=== PATIENT | female | born 1990 | race African-American/Black ===

== ENCOUNTER 2016-02-25 14:38 | Emergency (ER) | payer MEDICAID ==
[2016-02-25] MEDS ORDERED: ASPIRIN 81 MG TABLET, CHEWABLE PO ONE (15:16)
--- NOTE | 2016-02-25 15:16 | ER Document Report ---
ED Medical Screen (RME) - General Chief Complaint: Cough Stated Complaint: Cough Time seen by provider: 15:13 Mode of Arrival: Ambulatory Information source: Patient Notes: 25 yo female presents to ed for cough and chest pain since . She was seen at that time for same. TRAVEL OUTSIDE OF THE [place] IN LAST 30 DAYS: No - HPI Onset: Other - 2 months Onset/Duration: Persistent Quality of pain: Pressure, Sharp Severity: Moderate Associated Symptoms: Chest pain - left arm and shoulder and neck also get radiating pain, Cough (nonproductive) Exacerbated by: Denies Relieved by: Denies Similar symptoms previously: Yes Recently seen / treated by doctor: No - Related Data Smoking: Non-smoker Frequency of alcohol use: None Drug Abuse: None Allergies/Adverse Reactions: No Known Allergies Allergy (Verified 02/25/16 15:12) Past Medical History - Past Medical History Cardiac Medical History: Reports: Hx Heart Murmur Past Surgical History: Reports: Hx Gynecologic Surgery - placenta - Immunizations Immunizations up to date: Yes Hx Diphtheria, Pertussis, Tetanus Vaccination: Yes
--- NOTE | 2016-02-25 16:05 | ER Document Report ---
ED General - General Chief Complaint: Cough Stated Complaint: Cough Time seen by provider: 15:35 Mode of Arrival: Ambulatory Information source: Patient Notes: 25-year-old female who complains about 2 month history of cough occasional productive white sputum and sharp anterior chest pain with coughing or deep breathing that has gotten worse over the past 2 days. She denies fever, chills , nausea, vomiting, diarrhea, abdominal pain, back pain, or swelling to extremities. She denies any history of travel or immobilization. As a family history of blood clots or heart problems. He does report occasional anterior facial pain and nasal congestion over the past week but that is not bothering her now. Patient was seen here November diagnosed with acute bronchitis and discharged with an inhaler and steroids but she says she is not ever taken antibiotics for this. Physical Exam: General: Alert, appears well. HEENT: Normocephalic. Atraumatic. PERRLA. Extraocular movements intact. Oropharynx clear. No frontal or maxillary sinus tenderness to palpation. Tympanic members canals clear. Neck: Supple. Non-tender. JVD Respiratory: No respiratory distress. Few rhonchi bilaterally breath sounds equal good aeration excess musty smelling to palpation anteriorly which reproduces patient's pain Cardiovascular: Regular rate and rhythm. Abdominal: Normal Inspection. Soft, non-tender. No distension. Normal Bowel Sounds. Back: Non-tender. No deformity or step off. Extremities: Moves all four extremities. 2+ pulses all 4 extremities no lower extremity edema. No Homans sign bilaterally. 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 Normal Mood. Skin: Warm. Dry. Normal color. TRAVEL OUTSIDE OF THE [place] IN LAST 30 DAYS: No - Related Data Allergies/Adverse Reactions: No Known Allergies Allergy (Verified 02/25/16 15:12) Past Medical History - General Information source: Patient - Social History Smoking Status: Never Smoker Chew tobacco use (# tins/day): No Frequency of alcohol use: None Drug Abuse: None Family History: Reviewed & Not Pertinent. denies: CAD Patient has suicidal ideation: No Patient has homicidal ideation: No - Past Medical History Cardiac Medical History: Reports: Hx Heart Murmur Past Surgical History: Reports: Hx Gynecologic Surgery - placenta - Immunizations Immunizations up to date: Yes Hx Diphtheria, Pertussis, Tetanus Vaccination: Yes Review of Systems - Review of Systems Constitutional: denies: Malaise, Weakness EENT: denies: Ear pain, Throat pain Cardiovascular: See HPI Respiratory: See HPI Gastrointestinal: denies: Nausea, Vomiting Genitourinary: denies: Burning, Dysuria Female Genitourinary: Last menstrual period - Just finished normal for her Musculoskeletal: denies: Back pain Hematologic/Lymphatic: denies: Swollen glands Neurological/Psychological: denies: Weakness, Numbness Physical Exam - Vital signs Vitals: Temp Pulse Resp BP Pulse Ox 98.1 F 62 18 127/74 H 100 02/25/16 15:12 02/25/16 15:12 02/25/16 15:12 02/25/16 15:12 02/25/16 15:12 Course - Re-evaluation Re-evalutation: 02/25/16 16:03 Patient has symptoms consistent with bronchitis but is they've not resolved over 2 months of Levaquin worthwhile this point to try a round of antibiotics C she consented to medical improvement. Her chest pain or believe is pleuritic in nature. She has no particular risk factors for coronary artery disease or pulmonary embolism - Vital Signs Vital signs: Temp Pulse Resp BP Pulse Ox 98.1 F 62 18 127/74 H 100 02/25/16 15:12 02/25/16 15:12 02/25/16 15:12 02/25/16 15:12 02/25/16 15:12 - Diagnostic Test Radiology reviewed: Reports reviewed - EKG Interpretation by Me Additional EKG results interpreted by me: 02/25/16 16:03 EKG reviewed by myself shows sinus rhythm at 67 no acute changes Discharge - Discharge Clinical Impression: Bronchitis Condition: Stable Disposition: HOME, SELF-CARE Additional Instructions: Bronchitis You have acute bronchitis. This disease is an infection or inflammation of the air passageways in your lungs. Symptoms usually include cough, low grade fever, shortness of breath, and wheezing. The cough usually persists for a couple of weeks. Most cases of bronchitis get better without antibiotics. We prescribe antibiotics when we believe bacteria are damaging your airways, or if there's high risk the bronchitis will worsen into pneumonia. Increase your fluid intake. A cool mist humidifier may make your lungs more comfortable. An expectorant (cough medicine that loosens phlegm) can help. If you smoke, STOP!!! Recovery from bronchitis can be somewhat slow, but you should see improvement within a day or two. Repeated episodes of bronchitis may result in lung damage -- for example, chronic bronchitis, recurrent pneumonias, or emphysema. Call the doctor if you develop increasing fever, shortness of breath, chest pain, bloody sputum, or otherwise worsen. If you have not improved at all after several days, contact the physician. Prescriptions: Azithromycin [Zithromax 250 mg Tablet] 250 mg PO ASDIR PRN #6 tablet PRN Reason: Referrals: QUANG RODRIGUEZ MD [ACTIVE STAFF] - Follow up as needed
[2016-02-25 17:03] VITALS: BP 117/65
--- NOTE | 2016-02-25 17:42 | EKG REPORT ---
SEVERITY:- OTHERWISE NORMAL ECG - SINUS ARRHYTHMIA, RATE [id number] : Confirmed by: Gavino Clarke 25-Feb-2016 17:40:54
== END 2016-02-25 16:33 | disposition home or self-care (01) ==
LOC: ER 14:38
DX: J40 Bronchitis, not specified as acute or chronic (principal); R05 Cough; R07.9 Chest pain, unspecified
CPT/HCPCS: 71020; 93005; 93010; 99283

== ENCOUNTER 2016-02-27 19:52 | Emergency (ER) | payer MEDICAID ==
--- NOTE | 2016-02-27 20:38 | ER Document Report ---
ED Medical Screen (RME) - General Stated Complaint: CHEST TIGHTNESS Time seen by provider: 20:32 Mode of Arrival: Ambulatory Information source: Patient Notes: 25 yo female c/o retrosternal midlinechest pain for 2 weeks, seen sunday, tx for bronchitis, checked her symptoms out on google and wants bloodwork to rule out heart attack. The doctor seen her sunday canceled all the albwork and she wants it checked to day. TRAVEL OUTSIDE OF THE [place] IN LAST 30 DAYS: No - Related Data Allergies/Adverse Reactions: No Known Allergies Allergy (Verified 02/25/16 15:12) Past Medical History - Past Medical History Cardiac Medical History: Reports: Hx Heart Murmur Past Surgical History: Reports: Hx Gynecologic Surgery - placenta - Immunizations Immunizations up to date: Yes Hx Diphtheria, Pertussis, Tetanus Vaccination: Yes
[2016-02-27 21:27] LABS: ABSOLUTE EOSINOPHILS # (AUTO) 0.1 10^3/uL (0.0-0.6); ABSOLUTE LYMPHOCYTES (AUTO) 1.9 10^3/uL (0.5-4.7); ABSOLUTE MONOCYTES (AUTO) 0.6 10^3/uL (0.1-1.4); ABSOLUTE NEUT (AUTO) 3.1 10^3/uL (1.7-8.2); BASOPHILS % (AUTO) 0.8 % (0-2); EOSINOPHILS % (AUTO) 1.9 % (0-6); HEMATOCRIT 39.8 % (36.0-47.0); HEMOGLOBIN 12.8 g/dL (12.0-15.5); HGB HCT DIFFERENCE -1.4; LYMPHOCYTES % (AUTO) 33.4 % (13-45); MEAN CORPUSCULAR HEMOGLOBIN 26.5 pg (27.0-33.4); MEAN CORPUSCULAR HGB CONC 32.1 g/dL (32.0-36.0); MEAN CORPUSCULAR VOLUME 83 fl (80-97); MONOCYTES % (AUTO) 10.9 % (3-13); RED BLOOD COUNT 4.82 10^6/uL (3.72-5.28); RED CELL DISTRIBUTION WIDTH 14.2 % (11.5-14.0); WHITE BLOOD COUNT 5.8 10^3/uL (4.0-10.5)
[2016-02-27 21:45] LABS: ALANINE AMINOTRANSFERASE 35 U/L (9-52); ALBUMIN 4.3 g/dL (3.5-5.0); ALKALINE PHOSPHATASE 111 U/L (38-126); ANION GAP 11 (5-19); ASPARTATE AMINO TRANSFERASE 23 U/L (14-36); BILIRUBIN,TOTAL 0.4 mg/dL (0.2-1.3); BLOOD UREA NITROGEN 11 mg/dL (7-20); CALCIUM 10.1 mg/dL (8.4-10.2); CARBON DIOXIDE 28 mmol/L (22-30); CHLORIDE 105 mmol/L (98-107); CREATININE RESULT 0.89 mg/dL (0.52-1.25); GLUCOSE 85 mg/dL (75-110); POTASSIUM 4.8 mmol/L (3.6-5.0); SODIUM 144.3 mmol/L (137-145)
[2016-02-27] MEDS ORDERED: NAPROXEN 250 MG TABLET PO ONE (22:03)
--- NOTE | 2016-02-27 22:06 | ER Document Report ---
[id number] Mode of Arrival: Ambulatory Information source: Patient Notes: 25-year-old female presents with complaints of chest wall and back pain of one week duration. Patient notes she was seen here and initially treated for bronchitis was started on antibiotics which resolved her cough and her productive sputum. Patient denies any fevers. Patient notes that now it is just the body aches that are bothering her TRAVEL OUTSIDE OF THE [place] IN LAST 30 DAYS: No - HPI Onset: Last week Onset/Duration: Persistent Quality of pain: Achy Severity: Mild Pain Level: 1 Associated symptoms: Body/muscle aches Exacerbated by: Denies Relieved by: Denies Similar symptoms previously: Yes Recently seen / treated by doctor: Yes - Related Data Allergies/Adverse Reactions: No Known Allergies Allergy (Verified 02/27/16 20:33) Past Medical History - General Information source: Patient - Social History Smoking Status: Never Smoker Cigarette use (# per day): No Chew tobacco use (# tins/day): No Smoking Education Provided: No Family History: Reviewed & Not Pertinent. denies: CAD - Past Medical History Cardiac Medical History: Reports: Hx Heart Murmur Past Surgical History: Reports: Hx Gynecologic Surgery - placenta - Immunizations Immunizations up to date: Yes Hx Diphtheria, Pertussis, Tetanus Vaccination: Yes Review of Systems - Review of Systems Notes: REVIEW OF SYSTEMS: CONSTITUTIONAL : Denies fever, chills, or sweats. Denies recent illness. EENT: Denies eye, ear, throat, or mouth pain or symptoms. Denies nasal or sinus congestion or discharge. Denies throat, tongue, or mouth swelling or difficulty swallowing. CARDIOVASCULAR: Denies chest pain. Denies palpitations or racing or irregular heart beat. Denies ankle edema. RESPIRATORY: Denies cough, cold, or chest congestion. Denies shortness of breath, difficulty breathing, or wheezing. GASTROINTESTINAL: Denies abdominal pain or distention. Denies nausea, vomiting , or diarrhea. Denies blood in vomitus, stools, or per rectum. Denies black, tarry stools. Denies constipation. GENITOURINARY: Denies difficulty urinating, painful urination, burning, frequency, blood in urine, or discharge. MUSCULOSKELETAL: Admits to chest wall back pain SKIN: Denies rash, lesions or sores. HEMATOLOGIC : Denies easy bruising or bleeding. LYMPHATIC: Denies swollen, enlarged glands. NEUROLOGICAL: Denies confusion or altered mental status. Denies passing out or loss of consciousness. Denies dizziness or lightheadedness. Denies headache. Denies weakness or paralysis or loss of use of either side. Denies problems with gait or speech. Denies sensory loss, numbness, or tingling. Denies seizures. PSYCHIATRIC: Denies anxiety or stress. Denies depression, suicidal ideation, or homicidal ideation. ALL OTHER SYSTEMS REVIEWED AND NEGATIVE. Dictation was performed using [email or web address] voice recognition software PHYSICAL EXAMINATION: GENERAL: Well-appearing, well-nourished and in no acute distress. HEAD: Atraumatic, normocephalic. EYES: Pupils equal round and reactive to light, extraocular movements intact, conjunctiva are normal. ENT: Nares patent, oropharynx clear without exudates. Moist mucous membranes. NECK: Normal range of motion, supple without lymphadenopathy LUNGS: Breath sounds clear to auscultation bilaterally and equal. No wheezes rales or rhonchi. HEART: Regular rate and rhythm without murmurs ABDOMEN: Soft, nontender, nondistended abdomen. No guarding, no rebound. No masses appreciated. Female : deferred Musculoskeletal: Chest wall tenderness on palpation midsternal reproducing the same exact pain reproducible left scapular pain NEUROLOGICAL: Cranial nerves grossly intact. Normal speech, normal gait. Normal sensory, motor exams PSYCH: Normal mood, normal affect. SKIN: Warm, Dry, normal turgor, no rashes or lesions noted. Physical Exam - Vital signs Vitals: Temp Pulse Resp BP Pulse Ox 98.2 F 89 19 126/68 H 100 02/27/16 20:33 02/27/16 20:33 02/27/16 20:33 02/27/16 20:33 02/27/16 20:33 Course - Re-evaluation Re-evalutation: 02/27/16 23:15 Given that patients pain is exactly reproducible on palpation, I believe she is having costochondritis or muscle aches secondary to all the coughing that she had been doing. Lab work imaging note no significant abnormality patient's otherwise stable for discharge, she is watching television no distress After performing a Medical Screening Examination, I estimate there is LOW risk for RUPTURED ESOPHAGUS, PNEUMOTHORAX, PULMONARY EMBOLISM, ACUTE CORONARY SYNDROME, OR THORACIC AORTIC DISSECTION, thus I consider the discharge disposition reasonable. The patient and I have discussed the diagnosis and risks , and we agree with discharging home with close follow-up. We also discussed returning to the Emergency Department immediately if new or worsening symptoms occur. We have discussed the symptoms which are most concerning (e.g., bloody sputum, worsening pain or shortness of breath) that necessitate immediate return. - Vital Signs Vital signs: Temp Pulse Resp BP Pulse Ox 98.2 F 89 19 126/68 H 100 02/27/16 20:33 02/27/16 20:33 02/27/16 20:33 02/27/16 20:33 02/27/16 20:33 - Laboratory Result Diagrams: 02/27/16 21:17 02/27/16 21:17 Laboratory results interpreted by me: 02/27/16 21:17 MCH 26.5 L RDW 14.2 H - Diagnostic Test Radiology reviewed: Image reviewed, Reports reviewed - EKG Interpretation by Me EKG shows normal: Sinus rhythm, [place], Intervals, QRS Complexes Discharge - Discharge Clinical Impression: Costochondritis Back pain Qualifiers: Back pain location: thoracic back pain Chronicity: acute Back pain laterality: bilateral Qualified Code(s): M54.6 - Pain in thoracic spine Condition: Stable Disposition: HOME, SELF-CARE Instructions: Chest Wall Pain ([facility]) Additional Instructions: Follow up with your physician tomorrow for further care or return to the ED IMMEDIATELY if symptoms worsen or new concerns occur Prescriptions: Naproxen 500 mg PO Q8 #30 tablet Naproxen 500 mg PO Q8 #30 tablet Forms: Return to Work Referrals: ERICKSON BERRY MD [Primary Care Provider] - Follow up as needed
[2016-02-27 23:37] VITALS: BP 117/66
--- NOTE | 2016-02-28 08:53 | EKG REPORT ---
SEVERITY:- OTHERWISE NORMAL ECG - SINUS RHYTHM ATRIAL PREMATURE COMPLEX : Confirmed by: Gavino Clarke 28-Feb-2016 08:52:50
== END 2016-02-27 22:59 | disposition home or self-care (01) ==
LOC: ER 19:52
DX: M94.0 Chondrocostal junction syndrome [Tietze] (principal); R07.89 Other chest pain; M54.6 Pain in thoracic spine
CPT/HCPCS: 36415; 71020; 80053; 85025; 93005; 93010; 99285

== ENCOUNTER 2016-05-23 22:56 | Emergency (ER) | payer MEDICAID ==
[2016-05-24 01:22] VITALS: BP 119/80
== END 2016-05-24 03:15 | disposition left against medical advice (07) ==
LOC: ER 22:56
DX: Z53.9 Procedure and treatment not carried out, unspecified reason (principal); J02.9 Acute pharyngitis, unspecified

== ENCOUNTER 2016-08-05 21:26 | Emergency (ER) | payer MEDICAID ==
[2016-08-05 22:12] VITALS: BP 123/69
--- NOTE | 2016-08-06 13:01 | EKG REPORT ---
SEVERITY:- NORMAL ECG - SINUS RHYTHM : Confirmed by: Rachel Hobbs MD 06-Aug-2016 13:00:06
== END 2016-08-05 22:51 | disposition left against medical advice (07) ==
LOC: ER 21:26
DX: Z53.9 Procedure and treatment not carried out, unspecified reason (principal); R07.9 Chest pain, unspecified; M54.9 Dorsalgia, unspecified
CPT/HCPCS: 93005; 93010

== ENCOUNTER 2017-01-09 18:22 | Emergency (ER) | payer MEDICAID ==
--- NOTE | 2017-01-09 18:41 | ER Document Report ---
ED Medical Screen (RME) - General Chief Complaint: Lower Abdominal Pain Stated Complaint: ABDOMINAL PAIN,VAGINAL BLEEDING Time Seen by Provider: 01/09/17 18:40 Notes: Patient states she had an induced 3 weeks ago. She is now having pelvic pain with cramping and bleeding. TRAVEL OUTSIDE OF THE [place] IN LAST 30 DAYS: No - Related Data Allergies/Adverse Reactions: No Known Allergies Allergy (Verified 01/09/17 18:27) Home Medications: Current Home Medications No Home Medications 01/09/17 [History] Past Medical History - Social History Chew tobacco use (# tins/day): No Frequency of alcohol use: None Drug Abuse: None - Past Medical History Cardiac Medical History: Reports: Hx Heart Murmur Renal/ Medical History: Denies: Hx Peritoneal Dialysis Past Surgical History: Reports: Hx Gynecologic Surgery - placenta - Immunizations Immunizations up to date: Yes Hx Diphtheria, Pertussis, Tetanus Vaccination: Yes Physical Exam - Vital signs Vitals: Temp Pulse Resp BP Pulse Ox 99.0 F 89 13 130/74 H 100 01/09/17 18:27 01/09/17 18:27 01/09/17 18:27 01/09/17 18:27 01/09/17 18:27 Course - Vital Signs Vital signs: Temp Pulse Resp BP Pulse Ox 99.0 F 89 13 130/74 H 100 01/09/17 18:27 01/09/17 18:27 01/09/17 18:27 01/09/17 18:27 01/09/17 18:27
[2017-01-09 19:10] LABS: ABSOLUTE EOSINOPHILS # (AUTO) 0.1 10^3/uL (0.0-0.6); ABSOLUTE LYMPHOCYTES (AUTO) 1.9 10^3/uL (0.5-4.7); ABSOLUTE MONOCYTES (AUTO) 0.6 10^3/uL (0.1-1.4); ABSOLUTE NEUT (AUTO) 3.7 10^3/uL (1.7-8.2); BASOPHILS % (AUTO) 0.7 % (0-2); EOSINOPHILS % (AUTO) 1.6 % (0-6); HEMATOCRIT 29.7 % (36.0-47.0); HEMOGLOBIN 10.1 g/dL (12.0-15.5); HGB HCT DIFFERENCE 0.6; LYMPHOCYTES % (AUTO) 29.9 % (13-45); MEAN CORPUSCULAR HEMOGLOBIN 26.9 pg (27.0-33.4); MEAN CORPUSCULAR VOLUME 79 fl (80-97); MONOCYTES % (AUTO) 9.7 % (3-13); RED BLOOD COUNT 3.76 10^6/uL (3.72-5.28); RED CELL DISTRIBUTION WIDTH 14.4 % (11.5-14.0); SEGMENTED NEUTROPHILS % (AUTO) 58.1 % (42-78); WHITE BLOOD COUNT 6.4 10^3/uL (4.0-10.5)
--- NOTE | 2017-01-09 19:23 | ER Document Report ---
ED GI/ - General Chief Complaint: Lower Abdominal Pain Stated Complaint: ABDOMINAL PAIN,VAGINAL BLEEDING Time Seen by Provider: 01/09/17 18:40 Notes: The patient is a 26-year-old female, , who presents with 3 weeks of pelvic cramping and vaginal bleeding since she had a medical 3 weeks ago. Patient is continuing to bleed and pass clots. She denies lightheadedness, urinary symptoms, fevers, dysuria, flank pain or headache. TRAVEL OUTSIDE OF THE [place] IN LAST 30 DAYS: No - Related Data Allergies/Adverse Reactions: No Known Allergies Allergy (Verified 01/09/17 18:27) Past Medical History - General Information source: Patient - Social History Smoking Status: Never Smoker Chew tobacco use (# tins/day): No Frequency of alcohol use: None Drug Abuse: None Family History: Reviewed & Not Pertinent. denies: CAD Patient has suicidal ideation: No Patient has homicidal ideation: No - Past Medical History Cardiac Medical History: Reports: Hx Heart Murmur Renal/ Medical History: Denies: Hx Peritoneal Dialysis Past Surgical History: Reports: Hx Gynecologic Surgery - placenta - Immunizations Immunizations up to date: Yes Hx Diphtheria, Pertussis, Tetanus Vaccination: Yes Review of Systems - Review of Systems Notes: REVIEW OF SYSTEMS: CONSTITUTIONAL: -fevers, -chills EENT: -eye pain, -difficulty swallowing, -nasal congestion CARDIOVASCULAR:-chest pain, -syncope. RESPIRATORY: -cough, -SOB GASTROINTESTINAL: +abdominal cramping, - nausea, -vomiting, -diarrhea GENITOURINARY: -dysuria, -hematuria, +vaginal bleeding MUSCULOSKELETAL: -back pain, -neck pain SKIN: -rash or skin lesions. HEMATOLOGIC: -easy bruising or bleeding. LYMPHATIC: -swollen, enlarged glands. NEUROLOGICAL: -altered mental status or loss of consciousness, -headache, - neurologic symptoms PSYCHIATRIC: -anxiety, -depression. ALL OTHER SYSTEMS REVIEWED AND NEGATIVE. Physical Exam - Vital signs Vitals: Temp Pulse Resp BP Pulse Ox 99.0 F 89 13 130/74 H 100 01/09/17 18:27 01/09/17 18:27 01/09/17 18:27 01/09/17 18:27 01/09/17 18:27 - Notes Notes: PHYSICAL EXAMINATION: GENERAL: Well-appearing, well-nourished and in no acute distress. HEAD: Atraumatic, normocephalic. EYES: Pupils equal round and reactive to light, extraocular movements intact, sclera anicteric, conjunctiva are normal. ENT: nares patent, oropharynx clear without exudates. Moist mucous membranes. NECK: Normal range of motion, supple without lymphadenopathy LUNGS: Breath sounds clear to auscultation bilaterally and equal. No wheezes rales or rhonchi. HEART: Regular rate and rhythm without murmurs ABDOMEN: Soft, mild suprapubic tenderness, normoactive bowel sounds. No guarding, no rebound. No masses appreciated. EXTREMITIES: Normal range of motion, no pitting or edema. No cyanosis. NEUROLOGICAL: Cranial nerves grossly intact. Normal speech, normal gait. Normal sensory and motor exams. PSYCH: Normal mood, normal affect. SKIN: Warm, Dry, normal turgor, no rashes or lesions noted. Course - Re-evaluation Re-evalutation: 01/09/17 21:06 Pt has evidence of blood clots or retained products of conception in her cervix on ultrasound. Her hemoglobin is stable and vital signs are normal. Her beta hCG is 1200 and she is continuing to have bleeding. Placed call to Dr. Trae Holly, cosmetics machine operator helper steel fabrication, and awaiting callback. 01/09/17 21:[address] Holly and he has no further recommendations at this time. He recommends having patient follow up in his office to discuss if Cervidil is appropriate. Pt understands. Will send home with NSAIDs and Tylenol #3 for severe cramping. - Vital Signs Vital signs: Temp Pulse Resp BP Pulse Ox 99.0 F 89 13 130/74 H 100 01/09/17 18:27 01/09/17 18:27 01/09/17 18:27 01/09/17 18:27 01/09/17 18:27 - Laboratory Result Diagrams: 01/09/17 18:45 01/09/17 18:45 Laboratory results interpreted by me: 01/09/17 01/09/17 01/09/17 18:45 18:45 20:06 Hgb 10.1 L Hct 29.7 L MCV 79 L MCH 26.9 L RDW 14.4 H Beta HCG, Quant 1238.70 H Urine Blood LARGE H Ur Leukocyte Esterase TRACE H - Diagnostic Test Radiology reviewed: Image reviewed, Reports reviewed Radiology results interpreted by me: US OB: Complex echogenic area is identified within the cervix. This could represent blood clots however I cannot exclude retained products of conception. Other findings as noted above. Discharge - Discharge Clinical Impression: Vaginal bleeding, Retained products of conception Condition: Stable Disposition: HOME, SELF-CARE Additional Instructions: Follow-up with Dr. Holly's office tomorrow for a recheck of your symptoms. Take Motrin every 6 hours and Tylenol #3 for severe pain. Return to the ER if you have worsening symptoms or any other concerns. FOLLOW-UP CARE: If you have been referred to a physician for follow-up care, call the physician s office for an appointment as you were instructed or within the next two days. If you experience worsening or a significant change in your symptoms (very heavy bleeding with large clots of blood, passage of tissue, more severe abdominal / pelvic pain or cramping, feeling faint or severe weakness, fever, etc.), notify the physician immediately or return to the Emergency Department at any time for re-evaluation. OBSTETRIC-GYNECOLOGIC (OB-[employer]) PHYSICIANS IN [place]: [facility] [address], [place] [id number] [facility] [address], [place] [phone] For active duty and dependents diagnosed with a threatened or miscarriage, you should follow up in the following manner: Standard patients who have a local civilian provider should follow up with that provider. Patients of the Family Practice Clinic should call your Team Nurse at 8: 00 am the following morning for further instructions. If you are neither a Standard patient nor a patient of the Family Practice Clinic, you should follow up at the [facility] ([facility]) . Patients already enrolled in the [facility], Prime patients not assigned to the Family Practice Clinic, and Active Duty patients not assigned to Family Practice Clinic should report to the [facility] at 8:00 am the next morning that the [facility] is open and then you will be seen in the OB Clinic at 11:00 am. Prescriptions: Acetaminophen with Codeine [Tylenol #3 Tablet] 1 each PO Q4HP PRN #10 tablet PRN Reason: Forms: Elevated Blood Pressure Referrals: MARIELA NEWTON CNM [Primary Care Provider] - Follow up as needed GOPAL HOLLY MD [ACTIVE STAFF] - Follow up as needed
[2017-01-09 19:30] LABS: ALANINE AMINOTRANSFERASE 23 U/L (9-52); ALKALINE PHOSPHATASE 97 U/L (38-126); ANION GAP 12 (5-19); ASPARTATE AMINO TRANSFERASE 15 U/L (14-36); BILIRUBIN,DIRECT 0.2 mg/dL (0.0-0.4); BILIRUBIN,TOTAL 0.3 mg/dL (0.2-1.3); BLOOD UREA NITROGEN 8 mg/dL (7-20); CALCIUM 9.4 mg/dL (8.4-10.2); CARBON DIOXIDE 26 mmol/L (22-30); CHLORIDE 104 mmol/L (98-107); CREATININE RESULT 0.81 mg/dL (0.52-1.25); GLUCOSE 85 mg/dL (75-110); POTASSIUM 4.7 mmol/L (3.6-5.0); SODIUM 142.1 mmol/L (137-145); TOTAL PROTEIN 6.6 g/dL (6.3-8.2)
--- NOTE | 2017-01-09 19:45 | RADIOLOGY REPORT (SQ) ---
EXAM DESCRIPTION: U/S NON-OB PELVIS TV W/O DOP COMPLETED DATE/TIME: 01/09/2017 7:31 pm REASON FOR STUDY: pain/bleeding after COMPARISON: None. TECHNIQUE: Dynamic and static grayscale images acquired of the pelvis via transvaginal approach and recorded on PACS. Additional selected color Doppler and spectral images recorded. LIMITATIONS: None. FINDINGS: UTERUS: Contour normal. No mass. ENDOMETRIAL STRIPE: No focal or generalized thickening. No masses. CERVIX: Complex echogenic area is identified within the cervix. This could represent blood clots how ever I cannot exclude retained products of conception. RIGHT OVARY: No abnormal masses. RIGHT OVARY DOPPLER: Normal arterial vascular flow without evidence for torsion. LEFT OVARY: No abnormal masses. LEFT OVARY DOPPLER: Normal arterial vascular flow without evidence for torsion. FREE FLUID: None noted. OTHER: No other significant finding. MEASUREMENTS: UTERUS: 10.9 x 5.9 x 5.3 cm ENDOMETRIAL STRIPE: 7 mm RIGHT OVARY: A go 2.7 x 1.3 x 1.2 cm LEFT OVARY: 2.4 x 1.9 x 4.17 IMPRESSION: Complex echogenic area is identified within the cervix. This could represent blood clot s however I cannot exclude retained products of conception. Other findings as noted above TECHNICAL DOCUMENTATION: JOB ID: [id number] [employer]- All Rights Reserved
[2017-01-09 20:25] LABS: APPEARANCE,URINE CLEAR; BILIRUBIN,URINE NEGATIVE (NEGATIVE); GLUCOSE, URINE NEGATIVE (NEGATIVE); KETONES,URINE NEGATIVE (NEGATIVE); LEUKOCYTE ESTERASE,URINE TRACE (NEGATIVE); NITRITE,URINE NEGATIVE (NEGATIVE); PROTEIN,URINE NEGATIVE (NEGATIVE); UROBILINOGEN,URINE NEGATIVE mg/dL (<2.0)
[2017-01-09 21:54] VITALS: BP 108/74
== END 2017-01-09 21:53 | disposition home or self-care (01) ==
LOC: ER 18:22
DX: O03.4 Incomplete spontaneous abortion without complication (principal); R10.30 Lower abdominal pain, unspecified; N93.9 Abnormal uterine and vaginal bleeding, unspecified; R10.9 Unspecified abdominal pain; R10.2 Pelvic and perineal pain
CPT/HCPCS: 36415; 76830; 80053; 81001; 84702; 85025; 99284

== ENCOUNTER 2017-03-27 15:40 | Emergency (ER) | payer MEDICAID, OTHER ==
--- NOTE | 2017-03-27 15:54 | ER Document Report ---
ED Medical Screen (RME) - General Chief Complaint: Abdominal Pain Stated Complaint: PELVIC PAIN Time Seen by Provider: 03/27/17 15:51 Mode of Arrival: Ambulatory Information source: Patient TRAVEL OUTSIDE OF THE [place] IN LAST 30 DAYS: No - HPI Patient complains to provider of: pelvic pain Onset: Yesterday - pt with c/o pelvic pain and discharge for the past day. Denies bleeding - Related Data Allergies/Adverse Reactions: No Known Allergies Allergy (Verified 03/27/17 15:41) Past Medical History - Social History Chew tobacco use (# tins/day): No Frequency of alcohol use: Rare Drug Abuse: None - Past Medical History Cardiac Medical History: Reports: Hx Heart Murmur Renal/ Medical History: Denies: Hx Peritoneal Dialysis Past Surgical History: Reports: Hx Gynecologic Surgery - placenta - Immunizations Immunizations up to date: Yes Hx Diphtheria, Pertussis, Tetanus Vaccination: Yes Physical Exam - Vital signs Vitals: Temp Pulse Resp BP Pulse Ox 98.8 F 79 16 126/70 H 100 03/27/17 15:45 03/27/17 15:45 03/27/17 15:45 03/27/17 15:45 03/27/17 15:45 Course - Vital Signs Vital signs: Temp Pulse Resp BP Pulse Ox 98.8 F 79 16 126/70 H 100 03/27/17 15:45 03/27/17 15:45 03/27/17 15:45 03/27/17 15:45 03/27/17 15:45
[2017-03-27 16:36] LABS: ABSOLUTE BASOPHILS # (AUTO) 0.1 10^3/uL (0.0-0.2); ABSOLUTE EOSINOPHILS # (AUTO) 0.1 10^3/uL (0.0-0.6); ABSOLUTE LYMPHOCYTES (AUTO) 1.9 10^3/uL (0.5-4.7); ABSOLUTE MONOCYTES (AUTO) 0.7 10^3/uL (0.1-1.4); ABSOLUTE NEUT (AUTO) 2.6 10^3/uL (1.7-8.2); BASOPHILS % (AUTO) 1.1 % (0-2); HEMATOCRIT 32.1 % (36.0-47.0); HEMOGLOBIN 9.8 g/dL (12.0-15.5); LYMPHOCYTES % (AUTO) 35.3 % (13-45); MEAN CORPUSCULAR HEMOGLOBIN 20.8 pg (27.0-33.4); MEAN CORPUSCULAR HGB CONC 30.6 g/dL (32.0-36.0); MEAN CORPUSCULAR VOLUME 68 fl (80-97); MONOCYTES % (AUTO) 12.6 % (3-13); PLATELET COUNT 448 10^3/uL (150-450); RED BLOOD COUNT 4.72 10^6/uL (3.72-5.28); RED CELL DISTRIBUTION WIDTH 17.6 % (11.5-14.0); TOTAL CELLS COUNTED % (AUTO) 100 %; WHITE BLOOD COUNT 5.3 10^3/uL (4.0-10.5)
[2017-03-27 16:41] LABS: APPEARANCE,URINE CLEAR; BILIRUBIN,URINE NEGATIVE (NEGATIVE); COLOR,URINE STRAW; GLUCOSE, URINE NEGATIVE (NEGATIVE); KETONES,URINE NEGATIVE (NEGATIVE); LEUKOCYTE ESTERASE,URINE TRACE (NEGATIVE); NITRITE,URINE NEGATIVE (NEGATIVE); PROTEIN,URINE NEGATIVE (NEGATIVE); URINE SPECIFIC GRAVITY 1.004; UROBILINOGEN,URINE NEGATIVE mg/dL (<2.0)
[2017-03-27 17:13] LABS: ALANINE AMINOTRANSFERASE 18 U/L (9-52); ALBUMIN 4.5 g/dL (3.5-5.0); ALKALINE PHOSPHATASE 98 U/L (38-126); ANION GAP 14 (5-19); ASPARTATE AMINO TRANSFERASE 17 U/L (14-36); BILIRUBIN,DIRECT 0.3 mg/dL (0.0-0.4); BILIRUBIN,TOTAL 0.3 mg/dL (0.2-1.3); BLOOD UREA NITROGEN 12 mg/dL (7-20); CALCIUM 10.3 mg/dL (8.4-10.2); CARBON DIOXIDE 22 mmol/L (22-30); CHLORIDE 105 mmol/L (98-107); GLUCOSE 83 mg/dL (75-110); POTASSIUM 4.4 mmol/L (3.6-5.0); TOTAL PROTEIN 8.1 g/dL (6.3-8.2)
[2017-03-27 18:13] LABS: CHLAM PCR NOT DETECTED (NOT DETECT); GON PCR NOT DETECTED (NOT DETECT)
--- NOTE | 2017-03-27 20:45 | ER Document Report ---
ED General - General Chief Complaint: Abdominal Pain Stated Complaint: PELVIC PAIN Time Seen by Provider: 03/27/17 15:51 Mode of Arrival: Ambulatory Information source: Patient TRAVEL OUTSIDE OF THE [place] IN LAST 30 DAYS: No - HPI Patient complains to provider of: abnormal vaginal discharge Onset: Other - few days ago Severity: Mild Notes: Patient is 4 para 2011 with a 3 and 1-year-old at home. She states approximately 1 year ago she had chlamydia that she was treated for it. She presents here with sharp suprapubic bilateral pain that started a few days ago and is now resolved. Patient states that she also has abnormal vaginal discharge no bleeding. Patient states she had sex 2 days ago when she had mild discomfort with that. Vomiting diarrhea constipation abdominal pain. Patient is eating voiding defecating without difficulty - Related Data Allergies/Adverse Reactions: No Known Allergies Allergy (Verified 03/27/17 15:41) Past Medical History - General Information source: Patient - Social History Smoking Status: Never Smoker Chew tobacco use (# tins/day): No Frequency of alcohol use: Rare Drug Abuse: None Family History: Reviewed & Not Pertinent. denies: CAD Patient has suicidal ideation: No Patient has homicidal ideation: No - Past Medical History Cardiac Medical History: Reports: Hx Heart Murmur Pulmonary Medical History: Reports: None EENT Medical History: Reports: None Neurological Medical History: Reports: None Endocrine Medical History: Reports: None Renal/ Medical History: Reports: None. Denies: Hx Peritoneal Dialysis Malignancy Medical History: Reports: None GI Medical History: Reports: None Musculoskeltal Medical History: Reports None Skin Medical History: Reports None Psychiatric Medical History: Reports: None Traumatic Medical History: Reports: None Infectious Medical History: Reports: Other - chlamydia Past Surgical History: Reports: Hx Gynecologic Surgery - placenta - Immunizations Immunizations up to date: Yes Hx Diphtheria, Pertussis, Tetanus Vaccination: Yes Review of Systems - Review of Systems Constitutional: No symptoms reported EENT: No symptoms reported Cardiovascular: No symptoms reported Respiratory: No symptoms reported Gastrointestinal: No symptoms reported Genitourinary: See HPI Female Genitourinary: See HPI, Last menstrual period - 03/11/2017 Musculoskeletal: No symptoms reported Skin: No symptoms reported Hematologic/Lymphatic: No symptoms reported Neurological/Psychological: No symptoms reported Physical Exam - Vital signs Vitals: Temp Pulse Resp BP Pulse Ox 98.8 F 79 16 126/70 H 100 03/27/17 15:45 03/27/17 15:45 03/27/17 15:45 03/27/17 15:45 03/27/17 15:45 - Notes Notes: PHYSICAL EXAMINATION: GENERAL: Well-appearing, well-nourished and in no acute distress. HEAD: Atraumatic, normocephalic. EYES: Pupils equal round and reactive to light, extraocular movements intact, conjunctiva are normal. ENT: Nares patent, oropharynx clear without exudates. Moist mucous membranes. NECK: Normal range of motion, supple without lymphadenopathy LUNGS: Breath sounds clear to auscultation bilaterally and equal. No wheezes rales or rhonchi. HEART: Regular rate and rhythm without murmurs ABDOMEN: Soft, nontender, nondistended abdomen. No guarding, no rebound. No masses appreciated. No suprapubic tenderness with palpation Female : Normal external female genitalia. No bleeding in the vaginal vault. There is minimal clearish discharge no fishy odor. No CMT tenderness Musculoskeletal: Normal range of motion, no pitting or edema. No cyanosis. NEUROLOGICAL: Cranial nerves grossly intact. Normal speech, normal gait. Normal sensory, motor exams PSYCH: Normal mood, normal affect. SKIN: Warm, Dry, normal turgor, no rashes or lesions noted. Course - Re-evaluation Re-evalutation: 03/27/17 21:17 Labs- All tests 24 hr 03/27/17 03/27/17 03/27/17 16:10 16:10 16:10 WBC 5.3 RBC 4.72 Hgb 9.8 L Hct 32.1 L MCV 68 L MCH 20.8 L MCHC 30.6 L RDW 17.6 H Plt Count 448 Seg Neutrophils % 50.0 Lymphocytes % 35.3 Monocytes % 12.6 Eosinophils % 1.0 Basophils % 1.1 Absolute Neutrophils 2.6 Absolute Lymphocytes 1.9 Absolute Monocytes 0.7 Absolute Eosinophils 0.1 Absolute Basophils 0.1 Sodium 141.0 Potassium 4.4 Chloride 105 Carbon Dioxide 22 Anion Gap 14 BUN 12 Creatinine 1.05 Est GFR ( Amer) > 60 Est GFR (Non-Af Amer) > 60 Glucose 83 Calcium 10.3 H Total Bilirubin 0.3 Direct Bilirubin 0.3 Neonat Total Bilirubin Not Reportable Neonat Direct Bilirubin Not Reportable Neonat Indirect Bili Not Reportable AST 17 ALT 18 Alkaline Phosphatase 98 Total Protein 8.1 Albumin 4.5 Urine Color Urine Appearance Urine pH Ur Specific [place] Urine Protein Urine Glucose (UA) Urine Ketones Urine Blood Urine Nitrite Urine Bilirubin Urine Urobilinogen Ur Leukocyte Esterase Urine WBC (Auto) Urine RBC (Auto) Urine Bacteria (Auto) Squamous Epi Cells Auto Urine Mucus (Auto) Urine Ascorbic Acid Urine HCG, Qual Epi Cells (Wet Prep) Trichomonas (Wet Prep) Vaginal WBC Vaginal RBC Vaginal Yeast Chlamydia DNA (PCR) NOT DETECTED N.gonorrhoeae DNA (PCR) NOT DETECTED 03/27/17 03/27/17 16:10 20:29 WBC RBC Hgb Hct MCV MCH MCHC RDW Plt Count Seg Neutrophils % Lymphocytes % Monocytes % Eosinophils % Basophils % Absolute Neutrophils Absolute Lymphocytes Absolute Monocytes Absolute Eosinophils Absolute Basophils Sodium Potassium Chloride Carbon Dioxide Anion Gap BUN Creatinine Est GFR ( Amer) Est GFR (Non-Af Amer) Glucose Calcium Total Bilirubin Direct Bilirubin Neonat Total Bilirubin Neonat Direct Bilirubin Neonat Indirect Bili AST ALT Alkaline Phosphatase Total Protein Albumin Urine Color STRAW Urine Appearance CLEAR Urine pH 6.0 Ur Specific [place] 1.004 Urine Protein NEGATIVE Urine Glucose (UA) NEGATIVE Urine Ketones NEGATIVE Urine Blood NEGATIVE Urine Nitrite NEGATIVE Urine Bilirubin NEGATIVE Urine Urobilinogen NEGATIVE Ur Leukocyte Esterase TRACE H Urine WBC (Auto) 0 Urine RBC (Auto) 0 Urine Bacteria (Auto) TRACE Squamous Epi Cells Auto 2 Urine Mucus (Auto) RARE Urine Ascorbic Acid NEGATIVE Urine HCG, Qual NEGATIVE Epi Cells (Wet Prep) 3+ EPITHELIALS SEEN Trichomonas (Wet Prep) NO TRICHOMONAS SEEN Vaginal WBC FEW WBCS SEEN Vaginal RBC NO RBCS SEEN Vaginal Yeast NO YEAST SEEN Chlamydia DNA (PCR) N.gonorrhoeae DNA (PCR) - Vital Signs Vital signs: Temp Pulse Resp BP Pulse Ox 98.8 F 79 16 126/70 H 100 03/27/17 15:45 03/27/17 15:45 03/27/17 15:45 03/27/17 15:45 03/27/17 15:45 - Laboratory Result Diagrams: 03/27/17 16:10 03/27/17 16:10 Laboratory results interpreted by me: 03/27/17 03/27/17 03/27/17 16:10 16:10 16:10 Hgb 9.8 L Hct 32.1 L MCV 68 L MCH 20.8 L MCHC 30.6 L RDW 17.6 H Calcium 10.3 H Ur Leukocyte Esterase TRACE H Discharge - Discharge Clinical Impression: Anemia Condition: Stable Disposition: HOME, SELF-CARE Instructions: [facility] Additional Instructions: Follow up with your physician tomorrow for further care or return to the ED IMMEDIATELY if symptoms worsen or new concerns occur. If you cannot afford to follow up with your primary care physician a list of low cost clinics have been provided at the end of your discharge papers as well. Appointment with EXECUTIVE DIRECTOR OF NURSING to get your annual Pap smear.
[2017-03-27 21:10] LABS: RBCS (WET MOUNT) NO RBCS SEEN; T.VAGINALIS (WET MOUNT) NO TRICHOMONAS SEEN; WBCS (WET MOUNT) FEW WBCS SEEN; YEAST (WET MOUNT) NO YEAST SEEN
[2017-03-27 21:11] LABS: EPITHELIALS (WET MOUNT) 3+ EPITHELIALS SEEN
[2017-03-27 21:51] VITALS: BP 118/66
== END 2017-03-27 21:49 | disposition home or self-care (01) ==
LOC: ER 15:40
DX: D64.9 Anemia, unspecified (principal); N89.8 Other specified noninflammatory disorders of vagina; N94.10 Unspecified dyspareunia
CPT/HCPCS: 36415; 80053; 81001; 81025; 85025; 87210; 87491; 87591; 99284

== ENCOUNTER 2018-01-15 12:56 | Emergency (ER) | payer SELFPAY ==
--- NOTE | 2018-01-15 13:35 | EKG REPORT ---
SEVERITY:- ABNORMAL ECG - SINUS RHYTHM NONSPECIFIC T ABNORMALITIES, INFERIOR LEADS : Confirmed by: Zaid Benavides MD 15-Jan-2018 13:35:04
--- NOTE | 2018-01-15 14:34 | RADIOLOGY REPORT (SQ) ---
EXAM DESCRIPTION: CHEST 2 VIEWS COMPLETED DATE/TIME: 01/15/2018 2:23 pm REASON FOR STUDY: chest pain COMPARISON: 02/27/2016 EXAM PARAMETERS: NUMBER OF VIEWS: two views TECHNIQUE: Digital Frontal and Lateral radiographic views of the chest acquired. RADIATION DOSE: NA LIMITATIONS: none FINDINGS: LUNGS AND PLEURA: No opacities, masses or pneumothorax. No pleural effusion. MEDIASTINUM AND HILAR STRUCTURES: No masses or contour abnormalities. HEART AND VASCULAR STRUCTURES: Heart normal size. No evidence for failure. BONES: No acute findings. HARDWARE: None in the chest. OTHER: No other significant finding. IMPRESSION: NO ACUTE RADIOGRAPHIC FINDING IN THE CHEST. TECHNICAL DOCUMENTATION: JOB ID: [id number] [employer]- All Rights Reserved Reading location - IP/workstation name: [email or web address]
--- NOTE | 2018-01-15 14:57 | ER Document Report ---
ED Medical Screen (RME) - General Chief Complaint: Chest Pain Stated Complaint: HEADACHE,NAUSEA,BODY PAIN Time Seen by Provider: 01/15/18 13:00 Mode of Arrival: Ambulatory Information source: Patient TRAVEL OUTSIDE OF THE [place] IN LAST 30 DAYS: No - HPI Patient complains to provider of: Body aches Onset: Other - This is a well-appearing 27-year-old female that presents for evaluation of runny nose as well as body aches and low-grade fevers over the last 3 days for which she has been using DayQuil at home she notes that 2 of her children are sick at home with runny nose and cough. She says that the DayQuil does help with her symptoms but she seems to be feeling a little bit worse at night and today she wanted to be evaluated for concern because there was some achiness into the chest associated with her symptoms. Has never had anything like this in the past nothing makes it better or worse. - Related Data Allergies/Adverse Reactions: No Known Allergies Allergy (Verified 01/15/18 14:12) Past Medical History - General Information source: Patient - Social History Chew tobacco use (# tins/day): No Frequency of alcohol use: Occasional Drug Abuse: None - Past Medical History Cardiac Medical History: Reports: Hx Heart Murmur Renal/ Medical History: Denies: Hx Peritoneal Dialysis GI Medical History: Reports: Hx Gastroesophageal Reflux Disease Past Surgical History: Reports: Hx Gynecologic Surgery - placenta - Immunizations Immunizations up to date: Yes Hx Diphtheria, Pertussis, Tetanus Vaccination: Yes Review of Systems - Review of Systems -: Yes All other systems reviewed and negative Physical Exam - Vital signs Vitals: Temp Pulse Resp BP Pulse Ox 97.4 F 82 18 123/70 100 01/15/18 12:58 01/15/18 12:58 01/15/18 12:58 01/15/18 12:58 01/15/18 12:58 - General General appearance: Appears well, Alert - HEENT Head: Normocephalic, Atraumatic Eyes: Normal Pupils: PERRL - Respiratory Respiratory status: No respiratory distress Chest status: Nontender Breath sounds: Normal Chest palpation: Normal - Cardiovascular Rhythm: Regular Heart sounds: Normal auscultation Murmur: No - Abdominal Inspection: Normal Distension: No distension Bowel sounds: Normal Tenderness: Nontender Organomegaly: No organomegaly - Back Back: Normal, Nontender - Extremities General upper extremity: Normal inspection, Nontender, Normal color, Normal ROM , Normal temperature General lower extremity: Normal inspection, Nontender, Normal color, Normal ROM , Normal temperature, Normal weight bearing. No: Sebastian's sign - Neurological Neuro grossly intact: Yes Cognition: Normal Orientation: AAOx4 [place] Coma Scale Eye Opening: Spontaneous Prachi Coma Scale Verbal: Oriented [place] Coma Scale Motor: Obeys Commands [place] Coma Scale Total: 15 Speech: Normal Motor strength normal: LUE, RUE, LLE, RLE Sensory: Normal - Psychological Associated symptoms: Normal affect, Normal mood Course - Re-evaluation Re-evalutation: 01/15/18 21:12 27-year-old female presents for evaluation of body aches with some associated runny nose and low-grade fever. Because of the achiness in her chest she had received an EKG triage. Triage EKG is relatively unremarkable as patient is well-appearing she does not actually have active chest pain at this time. We will obtain a chest x-ray for potential underlying pneumonia as a process as a cause of her pain. Clinically this patient likely has a upper respiratory tract infection, in the past she said similar symptoms have been cold bronchitis for intermittently she responds to medications. We will plan to give her Tessalon Perles in case of any worsening and encouraged continued use of both Motrin as well as Tylenol for her symptoms. At the time of discharge the patient was chest pain-free well-appearing hemodynamically stable breathing room air. - Vital Signs Vital signs: Temp Pulse Resp BP Pulse Ox 97.5 F 86 15 120/76 100 01/15/18 15:00 01/15/18 15:00 01/15/18 15:00 01/15/18 15:00 01/15/18 15:00 Doctor's Discharge - Discharge Clinical Impression: Shortness of breath URI (upper respiratory infection) Qualifiers: URI type: unspecified URI Qualified Code(s): J06.9 - Acute upper respiratory infection, unspecified Condition: Good Disposition: HOME, SELF-CARE Instructions: Acetaminophen, Prilosec (Acid Pump Inhibitor) ([facility]), Upper Respiratory Illness ([facility]) Additional Instructions: He was seen today in the emergency department for your muscle aches and shortness of breath as well as the pain in her chest. He had an evaluation including a physical exam as well as an EKG and a chest x- ray. Your EKG was reassuring, your chest x-ray did not show a pneumonia or obvious abnormality inside of your chest. Continue to use DayQuil, continue to use Motrin, continue to use Tylenol as needed for your pain and cough. If you develop a cough associated with this use the Perls prescribed to you to help with those symptoms. Prescriptions: Benzonatate [Tessalon Perle 100 mg Capsule] 100 mg PO Q8HP PRN #40 cap PRN Reason:
[2018-01-15 15:01] VITALS: BP 120/76
== END 2018-01-15 15:01 | disposition home or self-care (01) ==
LOC: ER 12:56
DX: J06.9 Acute upper respiratory infection, unspecified (principal); R06.02 Shortness of breath; R07.9 Chest pain, unspecified; R51 Headache; R11.0 Nausea; M79.10 Myalgia, unspecified site
CPT/HCPCS: 71046; 93005; 93010; 99285

== ENCOUNTER → 2019-01-20 | Outpatient (CLI) | payer OTHER ==
[2019-01-20 17:30] LABS: ABSOLUTE EOSINOPHILS # (AUTO) 0.1 10^3/uL (0.0-0.6); ABSOLUTE LYMPHOCYTES (AUTO) 1.7 10^3/uL (0.5-4.7); ABSOLUTE MONOCYTES (AUTO) 0.7 10^3/uL (0.1-1.4); ABSOLUTE NEUT (AUTO) 3.6 10^3/uL (1.7-8.2); BASOPHILS % (AUTO) 0.6 % (0-2); HEMATOCRIT 34.3 % (36.0-47.0); HEMOGLOBIN 11.2 g/dL (12.0-15.5); LYMPHOCYTES % (AUTO) 27.9 % (13-45); MEAN CORPUSCULAR HEMOGLOBIN 23.8 pg (27.0-33.4); MEAN CORPUSCULAR HGB CONC 32.8 g/dL (32.0-36.0); MEAN CORPUSCULAR VOLUME 73 fl (80-97); MONOCYTES % (AUTO) 11.5 % (3-13); PLATELET COUNT 299 10^3/uL (150-450); RED BLOOD COUNT 4.72 10^6/uL (3.72-5.28); RED CELL DISTRIBUTION WIDTH 19.5 % (11.5-14.0); TOTAL CELLS COUNTED % (AUTO) 100 %; WHITE BLOOD COUNT 6.1 10^3/uL (4.0-10.5)
== END ==
LOC: OD 16:34
PROVIDERS: ATTEND Obstetrics & Gynecology
DX: Z34.81 Encounter for supervision of other normal pregnancy, first trimester (principal); Z13.0 Encounter for screening for diseases of the blood and blood-forming organs and certain disorders involving the immune mechanism; Z11.3 Encounter for screening for infections with a predominantly sexual mode of transmission; Z13.29 Encounter for screening for other suspected endocrine disorder
CPT/HCPCS: 36415; 83020; 84443; 85025; 86592; 86701; 86762; 86803; 86804; 86850; 86900; 86901; 87340

== ENCOUNTER 2019-04-28 15:38 | Outpatient (CLI) | payer OTHER ==
[2019-04-28 16:37] LABS: APPEARANCE,URINE CLEAR; BILIRUBIN,URINE NEGATIVE (NEGATIVE); COLOR,URINE STRAW; GLUCOSE, URINE NEGATIVE (NEGATIVE); KETONES,URINE NEGATIVE (NEGATIVE); LEUKOCYTE ESTERASE,URINE NEGATIVE (NEGATIVE); NITRITE,URINE NEGATIVE (NEGATIVE); PROTEIN,URINE NEGATIVE (NEGATIVE); URINE SPECIFIC GRAVITY 1.009; UROBILINOGEN,URINE NEGATIVE mg/dL (<2.0)
[2019-04-28 16:54] LABS: URINE AMPHETAMINES SCREEN NEGATIVE; URINE BARBITURATES SCREEN NEGATIVE; URINE BENZODIAZEPINES SCREEN NEGATIVE; URINE COCAINE SCREEN NEGATIVE; URINE MARIJUANA (THC) SCREEN NEGATIVE; URINE METHADONE SCREEN NEGATIVE; URINE PHENCYCLIDINE SCREEN NEGATIVE
[2019-04-28] MEDS ORDERED: HYDROXYZINE PAMOATE 50 MG CAPSULE PO ONE (17:16)
[2019-04-28] MEDS ORDERED: RINGERS SOLUTION,LACTATED 1,000 ML IV ONE (17:18)
[2019-04-28] MEDS ORDERED: HYDROXYZINE PAMOATE 50 MG CAPSULE ONE (17:32)
== END 2019-04-28 18:20 | disposition home or self-care (01) ==
LOC: LC 15:38
PROVIDERS: ATTEND Obstetrics & Gynecology
PROC: 4A1HXCZ Monitoring of Products of Conception, Cardiac Rate, External Approach (ICD-10-PCS; principal; 2019-04-28)
DX: Z34.82 Encounter for supervision of other normal pregnancy, second trimester (principal); Z3A.25 25 weeks gestation of pregnancy
CPT/HCPCS: 80307; 81001

== ENCOUNTER 2019-07-24 00:56 | Outpatient (CLI) | payer OTHER ==
[2019-07-24 01:35] LABS: APPEARANCE,URINE SLIGHTLY-CLOUDY; BILIRUBIN,URINE NEGATIVE (NEGATIVE); COLOR,URINE YELLOW; GLUCOSE, URINE NEGATIVE (NEGATIVE); KETONES,URINE NEGATIVE (NEGATIVE); LEUKOCYTE ESTERASE,URINE LARGE (NEGATIVE); NITRITE,URINE NEGATIVE (NEGATIVE); PROTEIN,URINE NEGATIVE (NEGATIVE); URINE SPECIFIC GRAVITY 1.009; UROBILINOGEN,URINE NEGATIVE mg/dL (<2.0)
[2019-07-24 02:26] LABS: URINE AMPHETAMINES SCREEN NEGATIVE; URINE BARBITURATES SCREEN NEGATIVE; URINE BENZODIAZEPINES SCREEN NEGATIVE; URINE COCAINE SCREEN NEGATIVE; URINE MARIJUANA (THC) SCREEN NEGATIVE; URINE METHADONE SCREEN NEGATIVE; URINE PHENCYCLIDINE SCREEN NEGATIVE
--- NOTE | 2019-07-24 03:11 | Non Stress Test Report ---
Non Stress Test Datetime Report Generated by CPN: 07/24/2019 03:11 DEMOGRAPHIC EGA NST: 39.1 INDICATION Indication for Study (NST) Other: LC- contractions MONITORING Monitor Explained: Monitor Explained; Test Explained; Patient Verbalized Understanding Time on Monitor: 07/24/2019 01:07 Time off Monitor: 07/24/2019 01:30 NST Duration: 23 NST INTERVENTIONS NST Interventions: Reposition Patient Physician Notified NST: Dr. Randhawa BABY A: [id number] BABY A Movement : Present Contraction Frequency : irregular FHR Baseline : 120 Accelerations : 15X15 Decelerations : None Variability : Moderate 6-25bpm NST Review: Meets Criteria for Reactive NST NST Review and Verified By : , RN NST Results: Reactive NST REPORT Report Trigger: Send Report
== END 2019-07-24 03:17 | disposition home or self-care (01) ==
LOC: LC 00:56
PROVIDERS: ATTEND Student in an Organized Health Care Education/Training Program
DX: O47.1 False labor at or after 37 completed weeks of gestation (principal); Z3A.39 39 weeks gestation of pregnancy
CPT/HCPCS: 59025; 80307; 81005

== ENCOUNTER 2019-07-30 11:04 | Inpatient (IN) | payer OTHER ==
[2019-07-30] MEDS ORDERED: ACETAMINOPHEN 325 MG TABLET PO PRN (11:27)
[2019-07-30] MEDS ORDERED: ACETAMINOPHEN 325 MG TABLET ONE (11:53)
[2019-07-30 12:08] LABS: ABSOLUTE BASOPHILS # (AUTO) 0.1 10^3/uL (0.0-0.2); ABSOLUTE LYMPHOCYTES (AUTO) 1.5 10^3/uL (0.5-4.7); ABSOLUTE MONOCYTES (AUTO) 1.1 10^3/uL (0.1-1.4); ABSOLUTE NEUT (AUTO) 5.8 10^3/uL (1.7-8.2); EOSINOPHILS % (AUTO) 0.6 % (0-6); HEMATOCRIT 32.8 % (36.0-47.0); HEMOGLOBIN 10.6 g/dL (12.0-15.5); LYMPHOCYTES % (AUTO) 18.1 % (13-45); MEAN CORPUSCULAR HEMOGLOBIN 24.7 pg (27.0-33.4); MEAN CORPUSCULAR HGB CONC 32.3 g/dL (32.0-36.0); MEAN CORPUSCULAR VOLUME 77 fl (80-97); MONOCYTES % (AUTO) 12.5 % (3-13); PLATELET COUNT 296 10^3/uL (150-450); RED BLOOD COUNT 4.28 10^6/uL (3.72-5.28); RED CELL DISTRIBUTION WIDTH 17.6 % (11.5-14.0); SEGMENTED NEUTROPHILS % (AUTO) 67.8 % (42-78); TOTAL CELLS COUNTED % (AUTO) 100 %; WHITE BLOOD COUNT 8.5 10^3/uL (4.0-10.5)
--- NOTE | 2019-07-30 12:13 | Non Stress Test Report ---
Non Stress Test Datetime Report Generated by CPN: 07/30/2019 12:13 DEMOGRAPHIC EGA NST: 40.0 INDICATION Indication for Study (NST) Other: PIH workup VITAL SIGNS Temperature - NST: 98.3 Pulse - NST: 84 RESP - NST: 18 NBPSYS NST: 135 NBPDIA NST: 81 MONITORING Monitor Explained: Monitor Explained; Test Explained; Patient Verbalized Understanding Time on Monitor: 07/30/2019 11:29 Time off Monitor: 07/30/2019 12:03 NST Duration: 34 NST INTERVENTIONS NST Interventions: PO Hydration; Reposition Patient Physician Notified NST: C. Treviño, CNM BABY A: [id number] BABY A Movement : Present Contraction Frequency : rare FHR Baseline : 125 Accelerations : 15X15 Decelerations : None Variability : Moderate 6-25bpm NST Review: Meets Criteria for Reactive NST NST Review and Verified By : Indu Christian, RN NST Results: Reactive NST COMMENTS NST Comments: C. Treviño, CNM on unit, reviewed strip NST REPORT Report Trigger: Send Report
[2019-07-30 12:23] LABS: URINE AMPHETAMINES SCREEN NEGATIVE; URINE BARBITURATES SCREEN NEGATIVE; URINE BENZODIAZEPINES SCREEN NEGATIVE; URINE COCAINE SCREEN NEGATIVE; URINE MARIJUANA (THC) SCREEN NEGATIVE; URINE METHADONE SCREEN NEGATIVE; URINE PHENCYCLIDINE SCREEN NEGATIVE
[2019-07-30 12:25] LABS: ALKALINE PHOSPHATASE 255 U/L (38-126); ANION GAP 6 (5-19); ASPARTATE AMINO TRANSFERASE 16 U/L (14-36); BILIRUBIN,TOTAL 0.2 mg/dL (0.2-1.3); BLOOD UREA NITROGEN 8 mg/dL (7-20); CALCIUM 9.3 mg/dL (8.4-10.2); CARBON DIOXIDE 22 mmol/L (22-30); CHLORIDE 106 mmol/L (98-107); GLUCOSE 77 mg/dL (75-110); POTASSIUM 4.3 mmol/L (3.6-5.0); URIC ACID 5.6 mg/dL (2.5-6.2)
[2019-07-30 12:26] LABS: APPEARANCE,URINE CLEAR; BILIRUBIN,URINE NEGATIVE (NEGATIVE); COLOR,URINE LIGHT YELLOW; GLUCOSE, URINE NEGATIVE (NEGATIVE)
[2019-07-30 12:27] LABS: ADD MANUAL MICROSCOPIC YES; KETONES,URINE NEGATIVE (NEGATIVE); LEUKOCYTE ESTERASE,URINE LARGE (NEGATIVE); NITRITE,URINE NEGATIVE (NEGATIVE); PROTEIN,URINE NEGATIVE (NEGATIVE); UR PRO/CREAT RATIO RESULT 0.3 mg/mg (0.0-0.2); URINE CREATININE 42.8 mg/dL (16-327); URINE PROTEIN 14.9 mg/dL (<12); URINE SPECIFIC GRAVITY 1.005; UROBILINOGEN,URINE NEGATIVE mg/dL (<2.0)
[2019-07-30] MEDS ORDERED: RINGERS SOLUTION,LACTATED 1,000 ML IV ONE (12:32)
[2019-07-30] MEDS ORDERED: OXYTOCIN/0.9 % SODIUM CHLORIDE 30 UNIT/500 ML RTUINJ IV PRN ×2 (12:32→23:04)
[2019-07-30] MEDS ORDERED: PENICILLIN G POTASSIUM 5,000,000 UNIT in DEXTROSE 5%-WATER 100 ML IV ONE (12:32)
[2019-07-30] MEDS ORDERED: OXYTOCIN 10 UNIT/ML VIAL ONE (12:48)
[2019-07-30] MEDS ORDERED: PENICILLIN G-K 5 MILLION UNIT VIAL ONE (12:49)
[2019-07-30] MEDS ORDERED: OXYTOCIN/0.9 % SODIUM CHLORIDE 30 UNIT/500 ML RTUINJ ONE (12:49)
[2019-07-30] MEDS ORDERED: MISOPROSTOL 0.2 MG TABLET ONE (12:49)
[2019-07-30] MEDS ORDERED: LIDOCAINE 1% INJ-PF (10 MG/ML) 30 ML SDV ONE (12:49)
--- NOTE | 2019-07-30 13:22 | Admission Physical ---
Datetime Report Generated by CPN: 07/30/2019 13:21 CURRENT ADMISSION Hx Assessment: The History has been Reviewed and is Current Chief Complaint: Sent from OB Office for Evaluation and Treatment - Please Specify Indication for Induction: PreEclampsia Admit Impression : Term, Intrauterine Admit Plan: Admit to Unit; Initiate Labor Induction Protocol ALLERGIES Medication Allergies: No Medication Allergies: No Known Allergies (07/24/2019) Latex: No Latex Allergies Food Allergies: none Environmental Allergies: none OBSTETRICAL HISTORY EDC: 07/30/2019 00:00 : 4 Para: 2 Term: 2 : 0 SAB: 0 IAB: 0 Ectopic: 0 Livin Cesareans: 0 VBACs: 0 Multiple Births: 0 Gestational Diabetes: No Rh Sensitization: No Incompetent Cervix: No JUNG: No Infertility: No ART Treatment: No Uterine Anomaly: No IUGR: No Hx Previous C/S: No Macrosomia: No Hx Loss/Stillborn: No PIH: No Hx : No Placenta Previa/Abruption: No Depression/PP Depression: No PTL/PROM: No Post Hemorrhage: No Current Procedures: Ultrasound Obstetrical History Comments: G1- at 41 weeks- IOL post dates G2- G3- 20 week SAB G4- current SEE RECORDS Alcohol: No Marijuana : No Cocaine: No Other Illicit Drugs: No Cigarettes: Never Smoker. [id number] MEDICAL HISTORY Diabetes: No Blood Transfusion: No Pulmonary Disease (Asthma, TB): No Breast Disease: No Hypertension: No Multiple Launch Rocket System Crewmember Surgery: No Heart Disease: No Hosp/Surgery: No Autoimmune Disorder: No Anesthetic Complications: No Kidney Disease: No Abnormal Pap Smear: No Neuro/Epilepsy: No Psychiatric Disorders: No Other Medical Diseases: No Hepatitis/Liver Disease: No Significant Family History: No Varicosities/Phlebitis: No Trauma/Violence : No Thyroid Dysfunction: No INFECTIOUS HISTORY Gonorrhea: No Genital Herpes: Yes Chlamydia: No Tuberculosis: No Syphilis: No Hepatitis: No HIV/AIDS Exposure: No Rash or Viral Illness: No HPV: No Infectious History Comments: HSV- started valtrex at 36 weeks PHYSICAL EXAM General: Normal Heart: Normal Lungs: Normal Extremities: Normal Pelvic Type: Adequate Physical Exam Comments: pelvis proven 8lbs 4oz Vital Signs: Reviewed Details Vital Signs: mild-severe range VAGINAL EXAM Contraction Comments: irregular MEMBRANES Membranes: Ruptured Amniotic Fluid Color: Clear FETUS A EGA: 40.0 Monitoring: External US FHR Category: Category I Estimated Weight (gm): 4365 Presentation: Vertex Admit Comment: 28yo at 40wga sent from office with elevated BP and headache with dx of GHTN. On arrival to L_D labs were drawn and dx with mild pre-e and decision was made to keep and induce. Pt was thought to be GBS negative based on records and after discussion with Dr. Stokes plan was to AROM and start pitocin for IOL. Pt was ruptured and after further review of additional records a urine culture from May was found which isolated less than 10,000 count of GBS so pt is in fact GBS positive and first dose of PCN given with IV start. Dr. Stokes notified of status change. Pt is AB pos, RI with significant hx of obesity (BMI 30 @ NOB) and HSV on valtrex since 36w with no recent outbreaks and verified by speculum exam on admission. Plan is to start pitocin at this time, epidural prn, anticipate delivery. Baby EFW 9lb 10oz on sono today PLANS FOR LABOR AND DELIVERY Labor and Delivery: None Pain Management: Natural; Epidural Feeding Preference: Breast Benefit of Breast Feed Discussed: Yes Circumcision: N/A INFORMED CONSENT Assignment: Bianca Stokes MD Signature: with User ID: [email or web address] : with User ID: [email or web address]
[2019-07-30] MEDS ORDERED: NALBUPHINE HCL INJ 10 MG/1 ML AMPULE INJ ONE (14:49)
[2019-07-30] MEDS ORDERED: PROMETHAZINE HCL INJ 25 MG/1 ML VIAL IV ONE (14:50)
[2019-07-30] MEDS ORDERED: NALBUPHINE HCL INJ 10 MG/1 ML AMPULE ONE (14:52)
[2019-07-30] MEDS ORDERED: PROMETHAZINE HCL INJ 25 MG/1 ML VIAL ONE (14:52)
[2019-07-30] MEDS: PENICILLIN G POTASSIUM 2,500,000 UNIT in DEXTROSE 5%-WATER 50 ML IV SCH (16:34)
[2019-07-30] MEDS ORDERED: BUPIVACAINE HCL 0.25 % INJ/PF (2.5 MG/1 ML) 30 ML VIAL ONE (17:08)
[2019-07-30] MEDS ORDERED: EPHEDRINE SULFATE INJ 50 MG/1 ML AMPULE ONE (17:08)
[2019-07-30] MEDS ORDERED: FENTANYL/BUPIVACAINE/NS/PF 300 MCG/150 ML RTUINJ EPI ONE (17:08)
[2019-07-30] MEDS ORDERED: PROMETHAZINE HCL INJ 25 MG/1 ML VIAL IV PRN (23:04)
[2019-07-30] MEDS ORDERED: ZOLPIDEM TARTRATE 5 MG TABLET PO PRN (23:04)
[2019-07-30] MEDS ORDERED: PROMETHAZINE HCL 25 MG TABLET PO PRN (23:04)
[2019-07-30] MEDS ORDERED: NA PHOS,M-B/NA PHOS,DI-BA (ADULT) 133 ML ENEMA PR PRN (23:04)
[2019-07-30] MEDS ORDERED: MEASLES,MUMPS&RUBELLA VACC/PF 0.5 ML VIAL SUBCUT PRN (23:04)
[2019-07-30] MEDS ORDERED: PROMETHAZINE HCL 25 MG SUPP.RECT PR PRN (23:04)
[2019-07-30] MEDS ORDERED: BENZOCAINE/MENTHOL AEROSOL SPRAY 56 ML TOP PRN (23:04)
[2019-07-30] MEDS ORDERED: PSEUDOEPHEDRINE HCL 30 MG TABLET PO PRN (23:04)
[2019-07-30] MEDS ORDERED: DIBUCAINE 1% OINTMENT 28 GM TP PRN (23:04)
[2019-07-30] MEDS ORDERED: DIPHENHYDRAMINE HCL 25 MG CAPSULE PO PRN (23:04)
[2019-07-30] MEDS ORDERED: ACETAMINOPHEN WITH CODEINE #3 TABLET PO PRN ×2 (23:04)
[2019-07-30] MEDS ORDERED: MAGNESIUM HYDROXIDE SUSP 30 ML UDCUP PO PRN (23:04)
[2019-07-30] MEDS ORDERED: GLYCERIN/WITCH HAZEL LEAF 1 EACH MED..WIPE TP PRN (23:04)
[2019-07-30] MEDS ORDERED: DIPH/PERTUSS(ACELL)/TETANUS VAC/PF 0.5 ML SYR (>=10YO) IM PRN (23:04)
[2019-07-30] MEDS ORDERED: ACETAMINOPHEN 650 MG SUPP.RECT PR PRN (23:04)
[2019-07-30] MEDS ORDERED: FAMOTIDINE 20 MG TABLET PO ONE (23:30)
--- NOTE | 2019-07-31 01:10 | Delivery Summary ---
Del Sum A-C Datetime Report Generated by CPN: 07/31/2019 01:09 DELIVERY PERSONNEL DELIVERY PERSONNEL: [id number] Delivery Doctor:: Bianca Stokes, MD Labor and Delivery Nurse:: Karrie Greenberg, RN Nursery Nurse:: Roberta Hill, RN MATERNAL INFORMATION Delivery Anesthesia: Epidural Medications After Delivery: Pitocin Bolus-Please Comment; Pitocin 30 Units in 500ml NS/D5W Delivery QBL: 50 Maternal Complications: None LABOR SUMMARY EDC: 07/30/2019 00:00 Attempted: No Labor Anesthesia: Epidural LABOR INFORMATION Reason for Induction: Not Applicable Onset of Labor: 07/30/2019 17:47 Complete Dilatation: 07/30/2019 19:22 Oxytocin: Augmentation Group B Beta Strep: negative Antibiotics # of Doses: 2 Antibiotics Time of Last Dose: 1634 Name of Antibiotic Given: PCN G Steroids Given: None Reason Steroids Not Administered: Not Applicable MEMBRANES Membranes Rupture Method: Artificial Rupture of Membranes: 07/30/2019 12:17 Length of Rupture (hr): 7.27 Amniotic Fluid Color: Clear Amniotic Fluid Amount: Small Amniotic Fluid Odor: None STAGES OF LABOR Stage 1 hr: 1 Stage 1 min: 35 Stage 2 hr: 0 Stage 2 min: 11 Stage 3 hr: 0 Stage 3 min: 4 Total Time in Labor hr: 1 Total Time in Labor min: 50 VAGINAL DELIVERY Episiotomy: None Laceration #1: Vaginal Other Laceration: bilateral vaginal without repair Laceration Repair: No Sponge Count Correct: Yes Sharps Count Correct: Yes CSECTION DELIVERY Primary Indication: N/A Secondary Indication: N/A CSection Incidence: N/A Labor: N/A Elective: N/A CSection Incision: N/A BABY A INFORMATION Infant Delivery Date/Time: 07/30/2019 19:33 Method of Delivery: Vaginal Nurse Controlled Delivery: No Born in Route : No : N/A Forceps: N/A Vacuum Extraction: N/A Shoulder Dystocia : No PRESENTATION/POSITION BABY A Presentation: Cephalic Cephalic Presentation: Vertex Vertex Position: Left Occipital Anterior Breech Presentation: N/A PLACENTA INFORMATION BABY A Placenta Delivery Time : 07/30/2019 19:37 Placenta Method of Delivery: Spontaneous Placenta Status: Delivered SCORES BABY A Heart Rate 1 min: >100 bpm Resp Effort 1 min: Good Cry Reflex Irritability 1 min: Cough or Sneeze or Pulls Away Muscle Tone 1 min: Active Motion Color 1 min: Blue/Pale Resuscitation Effort 1 min: Tactile Stimulation SCORE 1 MIN: 8 Heart Rate 5 min: >100 bpm Resp Effort 5 min: Good Cry Reflex Irritability 5 min: Cough or Sneeze or Pulls Away Muscle Tone 5 min: Active Motion Color 5 min: Body Frisbee, Extremities Blue Resuscitation Effort 5 min: Tactile Stimulation SCORE 5 MIN: 9 INFANT INFORMATION BABY A Gestational Age at Delivery: 40.0 Gestational Status: Full Term- 39- 40.6 Weeks Outcome : Liveborn Infant Condition : Stable Sex: Female IDENTIFICATION BABY A Verification Date/Time: 07/30/2019 20:26 ID Band Number: [id number] Mother's Name Verified: Yes RN Verifying Infant: Ailyn Greenberg LESIA Additional Verifying Personnel: Gage Dumontvi US WEIGHT/LENGTH BABY A Infant Birthweight (gm): 3855 Weight (lb): 8 Weight (oz): 8 Infant Length (in): 21.00 Length (cm): 53.34 CORD INFORMATION BABY A No. Cord Vessels: 3 Nuchal Cord : N/A Cord Blood Taken: Yes-For Storage (Mom's Blood type +) Infant Suction: Mouth; Nose ASSESSMENT BABY A Infant Complications: None Physical Findings at Delivery: Other Physical Findings- Other: see nursery note Respirations: Appears Normal Skin to Skin: Yes It Trainee/ALS Called : No Transferred To: Nursery BABY B INFORMATION : N/A
[2019-07-31] MEDS: IBUPROFEN 800 MG TABLET PO SCH ×3 (05:26→22:47)
[2019-07-31 08:10] LABS: HEMATOCRIT 30.5 % (36.0-47.0); HEMOGLOBIN 9.7 g/dL (12.0-15.5); MEAN CORPUSCULAR HEMOGLOBIN 24.5 pg (27.0-33.4); MEAN CORPUSCULAR HGB CONC 31.8 g/dL (32.0-36.0); MEAN CORPUSCULAR VOLUME 77 fl (80-97); PLATELET COUNT 262 10^3/uL (150-450); RED BLOOD COUNT 3.95 10^6/uL (3.72-5.28); RED CELL DISTRIBUTION WIDTH 17.3 % (11.5-14.0); WHITE BLOOD COUNT 15.2 10^3/uL (4.0-10.5)
[2019-07-31] MEDS: SENNOSIDES/DOCUSATE 8.6-50 MG 1 EACH TABLET PO SCH (11:29)
[2019-07-31] MEDS: DOCUSATE SODIUM 100 MG CAPSULE PO SCH ×2 (11:29→17:34)
[2019-07-31] MEDS: PRENATAL VITAMIN W DHA CAPSULE PO SCH (11:29)
[2019-07-31] MEDS: FAMOTIDINE 20 MG TABLET PO SCH ×2 (11:30→22:47)
[2019-07-31] MEDS: FERROUS SULFATE 325 MG TABLET PO SCH ×2 (11:30→17:34)
[2019-07-31] MEDS: PENICILLIN G POTASSIUM 2,500,000 UNIT in DEXTROSE 5%-WATER 50 ML IV SCH (12:12)
--- NOTE | 2019-07-31 14:22 | PDOC PROGRESS REPORT ---
Subjective-OB Progress Note for:: 07/31/19 - PP Day #1, doing when, AB+, Rubella Immune, Physical Exam (OB) Vital Signs: Intake & Output 07/30/19 07/31/19 08/01/19 06:59 06:59 06:59 Intake Total 600 Output Total 850 950 Balance -850 -350 Weight 127.1 kg - General General Appearance: Appears well, Alert - PIH/Pre-Eclampsia DTR's: 1 + Clonus: Negative Headache: Absent Epigastric Pain: No Visual Changes: No - Dressing Removed: No Incision: Dressing Closure Type: silk tape - Lochia Lochia Amount: Small 10-25 ml Lochia Color: Rubra/Red - Abdomen Description: Soft, Round Fundal Description: Firm, Midline Fundal Height: u/u - u/2 - Respiratory Respiratory Status: No respiratory distress - Abdominal Inspection: Normal Distension: No distension - Genitourinary Genitourinary Note: voiding - Extremities Upper extremity: Normal inspection Lower extremities: Normal inspection - Neurological Cognition: Normal Orientation: AAOx4 - Psychological Associated symptoms: Normal affect, Normal mood - Skin Skin Temperature: Warm Skin Moisture: Dry Objective-Diagnostic Laboratory: 07/31/19 07:41 07/30/19 11:59 07/31/19 07:41 WBC 15.2 H RBC 3.95 Hgb 9.7 L Hct 30.5 L MCV 77 L MCH 24.5 L MCHC 31.8 L RDW 17.3 H Plt Count 262 Assessment and Plan(PN) - Assessment and Plan (1) Bilateral hip pain Is this a current diagnosis for this admission?: Yes (2) Delivery normal Is this a current diagnosis for this admission?: Yes (3) Qualifiers: Weeks of gestation: unspecified Qualified Code(s): Z34.90 - Encounter for supervision of normal , unspecified, unspecified trimester Is this a current diagnosis for this admission?: Yes Plan:: routine PP orders, ambulation encouraged - Time Spent with Patient Time with patient: Less than 15 minutes Medications reviewed and adjusted accordingly: Yes - Disposition Anticipated Discharge: Home Within: within 24 hours
[2019-08-01] MEDS: IBUPROFEN 800 MG TABLET PO SCH ×2 (05:59→13:40)
[2019-08-01 08:13] VITALS: BP 121/59
[2019-08-01] MEDS: FAMOTIDINE 20 MG TABLET PO SCH (09:32)
[2019-08-01] MEDS: PRENATAL VITAMIN W DHA CAPSULE PO SCH (09:32)
[2019-08-01] MEDS: SENNOSIDES/DOCUSATE 8.6-50 MG 1 EACH TABLET PO SCH (09:32)
[2019-08-01] MEDS: FERROUS SULFATE 325 MG TABLET PO SCH (09:32)
[2019-08-01] MEDS: DOCUSATE SODIUM 100 MG CAPSULE PO SCH (09:32)
--- NOTE | 2019-08-01 10:29 | PDOC PROGRESS REPORT ---
Subjective-OB Progress Note for:: 08/01/19 Subjective: Doing well, no c/o, ready to go home, feels good Physical Exam (OB) Vital Signs: Temp Pulse Resp BP Pulse Ox 97.8 F 84 18 121/59 L 98 08/01/19 07:50 08/01/19 07:50 08/01/19 07:50 08/01/19 07:50 08/01/19 07:50 Intake & Output 07/31/19 08/01/19 08/02/19 06:59 06:59 06:59 Intake Total 600 Output Total 850 950 Balance -850 -350 Weight 127.1 kg - PIH/Pre-Eclampsia DTR's: 1 + Clonus: Negative Headache: Absent Epigastric Pain: No Visual Changes: No - Dressing Removed: No Incision: Dressing Closure Type: silk tape - Lochia Lochia Amount: Scant < 10 ml Lochia Color: Rubra/Red - Abdomen Description: Soft Hernia Present: No Fundal Description: Firm, Midline Fundal Height: u/u - u/2 Objective-Diagnostic Laboratory: 07/31/19 07:41 07/30/19 11:59 Assessment and Plan(PN) - Assessment and Plan (1) Delivery normal Is this a current diagnosis for this admission?: Yes - Time Spent with Patient Time with patient: Less than 15 minutes Medications reviewed and adjusted accordingly: Yes - Disposition Anticipated Discharge: Home Within: within 24 hours
--- NOTE | 2019-08-01 10:36 | PDOC DISCHARGE SUMMARY ---
Impression - Admit/DC Date/PCP Admission Date/Primary Care Provider: 07/30/19 12:37 RENITA LUDWIG MD Discharge Date: 08/01/19 - Discharge Diagnosis (1) Delivery normal Is this a current diagnosis for this admission?: Yes - Additional Information Resuscitation Status: Full Code Discharge Diet: As Tolerated, Regular Discharge Activity: Activity As Tolerated, No Lifting Over 10 Pounds, No Lifting/Push/Pulling, Pelvic Rest Referrals: RENITA LUDWIG MD [Primary Care Provider] - (1 week check BP) Home Medications: Acetaminophen [Tylenol] 325 mg PO Q4HP PRN 04/28/19 Vits96/Iron Fum/Folic [ Tablet] 1 tab PO DAILY 04/28/19 Valacyclovir HCl [Valtrex 500 mg Tablet] 1 tab PO BID 07/24/19 HPI Gestational Age: 40 Reason(s) for Admission: Onset of Labor Procedures: NST, Ultrasound Intrapartum Procedure(s): Spontaneous Vaginal Delivery Complication(s): Laceration-Vaginal - no repair Hospital Course Hospital Course: normal Results Laboratory Results: WBC 15.2 10^3/uL (4.0-10.5) H 07/31/19 07:41 RBC 3.95 10^6/uL (3.72-5.28) 07/31/19 07:41 Hgb 9.7 g/dL (12.0-15.5) L 07/31/19 07:41 Hct 30.5 % (36.0-47.0) L 07/31/19 07:41 MCV 77 fl (80-97) L 07/31/19 07:41 MCH 24.5 pg (27.0-33.4) L 07/31/19 07:41 MCHC 31.8 g/dL (32.0-36.0) L 07/31/19 07:41 RDW 17.3 % (11.5-14.0) H 07/31/19 07:41 Plt Count 262 10^3/uL (150-450) 07/31/19 07:41 Lymph % (Auto) 18.1 % (13-45) 07/30/19 11:59 [place] % (Auto) 12.5 % (3-13) 07/30/19 11:59 Eos % (Auto) 0.6 % (0-6) 07/30/19 11:59 Baso % (Auto) 1.0 % (0-2) 07/30/19 11:59 Absolute Neuts (auto) 5.8 10^3/uL (1.7-8.2) 07/30/19 11:59 Absolute Lymphs (auto) 1.5 10^3/uL (0.5-4.7) 07/30/19 11:59 Absolute Monos (auto) 1.1 10^3/uL (0.1-1.4) 07/30/19 11:59 Absolute Eos (auto) 0.0 10^3/uL (0.0-0.6) 07/30/19 11:59 Absolute Basos (auto) 0.1 10^3/uL (0.0-0.2) 07/30/19 11:59 Seg Neutrophils % 67.8 % (42-78) 07/30/19 11:59 Sodium 133.6 mmol/L (137-145) L 07/30/19 11:59 Potassium 4.3 mmol/L (3.6-5.0) 07/30/19 11:59 Chloride 106 mmol/L (98-107) 07/30/19 11:59 Carbon Dioxide 22 mmol/L (22-30) 07/30/19 11:59 Anion Gap 6 (5-19) 07/30/19 11:59 BUN 8 mg/dL (7-20) 07/30/19 11:59 Creatinine 0.78 mg/dL (0.52-1.25) 07/30/19 11:59 Est GFR ( Amer) > 60 (>60) 07/30/19 11:59 Est GFR (MDRD) Non-Af > 60 (>60) 07/30/19 11:59 Glucose 77 mg/dL (75-110) 07/30/19 11:59 Uric Acid 5.6 mg/dL (2.5-6.2) 07/30/19 11:59 Calcium 9.3 mg/dL (8.4-10.2) 07/30/19 11:59 Total Bilirubin 0.2 mg/dL (0.2-1.3) 07/30/19 11:59 Direct Bilirubin 0.0 mg/dL (0.0-0.4) 07/30/19 11:59 Neonat Total Bilirubin Not Reportable 07/30/19 11:59 Neonat Direct Bilirubin Not Reportable 07/30/19 11:59 Neonat Indirect Bili Not Reportable 07/30/19 11:59 AST 16 U/L (14-36) 07/30/19 11:59 ALT 10 U/L (<35) 07/30/19 11:59 Alkaline Phosphatase 255 U/L (38-126) H 07/30/19 11:59 Lactate Dehydrogenase 195 U/L (120-246) 07/30/19 11:59 Total Protein 6.0 g/dL (6.3-8.2) L 07/30/19 11:59 Albumin 3.0 g/dL (3.5-5.0) L 07/30/19 11:59 Urine Color LIGHT YELLOW 07/30/19 11:07 Urine Appearance CLEAR 07/30/19 11:07 Urine pH 7.0 (5.0-9.0) 07/30/19 11:07 Ur Specific [place] 1.005 07/30/19 11:07 Urine Protein NEGATIVE mg/dL (NEGATIVE) 07/30/19 11:07 Urine Glucose (UA) NEGATIVE mg/dL (NEGATIVE) 07/30/19 11:07 Urine Ketones NEGATIVE mg/dL (NEGATIVE) 07/30/19 11:07 Urine Blood SMALL (NEGATIVE) H 07/30/19 11:07 Urine Nitrite NEGATIVE (NEGATIVE) 07/30/19 11:07 Urine Bilirubin NEGATIVE (NEGATIVE) 07/30/19 11:07 Urine Urobilinogen NEGATIVE mg/dL (<2.0) 07/30/19 11:07 Ur Leukocyte Esterase LARGE (NEGATIVE) H 07/30/19 11:07 Urine WBC 5-10 /HPF 07/30/19 11:07 Ur Squamous Epith Cells FEW /HPF 07/30/19 11:07 Urine Creatinine 42.8 mg/dL (16-327) 07/30/19 11:07 Protein/Creatinin Ratio 0.3 mg/mg (0.0-0.2) H 07/30/19 11:07 Urine Total Protein 14.9 mg/dL (<12) H 07/30/19 11:07 Urine Ascorbic Acid NEGATIVE (NEGATIVE) 07/30/19 11:07 Urine Opiates Screen NEGATIVE 07/30/19 11:07 Urine Methadone Screen NEGATIVE 07/30/19 11:07 Ur Barbiturates Screen NEGATIVE 07/30/19 11:07 Ur Phencyclidine Scrn NEGATIVE 07/30/19 11:07 Ur Amphetamines Screen NEGATIVE 07/30/19 11:07 U Benzodiazepines Scrn NEGATIVE 07/30/19 11:07 Urine Cocaine Screen NEGATIVE 07/30/19 11:07 U Marijuana (THC) Screen NEGATIVE 07/30/19 11:07 RPR NONREACTIVE (NONREACTIVE) 07/30/19 12:58 Blood Type AB POSITIVE 07/30/19 12:58 Antibody Screen NEGATIVE 07/30/19 12:58 Plan Health Concerns: BP Plan of Treatment: discharge to home, 1 week for BP check Goals: routine Time Spent: Less than 30 Minutes
== END 2019-08-01 14:54 | disposition home or self-care (01) | DRG 806 ==
LOC: LC 11:04 → LR 12:37 → 2S 21:20
PROVIDERS: ADMIT Obstetrics & Gynecology; ATTEND Obstetrics & Gynecology
PROC: 10E0XZZ Delivery of Products of Conception, External Approach (ICD-10-PCS; principal; 2019-07-30)
DX: O13.4 Gestational [pregnancy-induced] hypertension without significant proteinuria, complicating childbirth (principal); O98.32 Other infections with a predominantly sexual mode of transmission complicating childbirth; Z37.0 Single live birth; O99.824 Streptococcus B carrier state complicating childbirth; A60.00 Herpesviral infection of urogenital system, unspecified; Z79.899 Other long term (current) drug therapy; Z3A.40 40 weeks gestation of pregnancy
CPT/HCPCS: 1967; 36415; 80053; 80307; 81001; 82570; 83615; 84156; 84550; 85025; 85027; 86592; 86850; 86900; 86901; 94760; J2300; J2540; J2550; J2590; J3010; J3490; J7060